=== PATIENT | male | born 1970 | race Caucasian/White ===

== ENCOUNTER 2016-11-10 16:02 | Emergency (ER) | payer BC, MEDICAID ==
[2016-11-10 16:13] VITALS: BP 116/77
[2016-11-10] MEDS ORDERED: hydrOXYzine PAMOATE 25 MG CAPSULE PO STA (17:17)
[2016-11-10] MEDS ORDERED: CLINDAMYCIN 150 MG CAPSULE PO STA (17:17)
[2016-11-10] MEDS ORDERED: predniSONE 20 MG TABLET PO STA (17:17)
--- NOTE | 2016-11-10 17:20 | ED Physician Documentation ---
History of Present Illness - Stated complaint Stated Complaint: RASH/ SOA - Chief complaint Chief Complaint: Allergic Rx - History obtained from History obtained from: Patient - History of Present Illness Timing: Other (He had a root canal 4 days ago. He was placed on Dilaudid, Vicodin, and Keflex. He only took 1 dose of the Dilaudid, centimeter and feels sick. About the day after starting his medications he developed a diffuse itchy rash worse in the groin and on the back which has not responded to Benadryl. He does have mild shortness of breath but no soft throat swelling he does have a little jaw swelling over the site of the root canal. He really does not need pain medication anymore.) Review of Systems Constitutional: denies: Fever, Chills Cardiac: reports: Reviewed and negative GI: denies: Vomiting, Constipation : reports: Reviewed and negative PD PAST MEDICAL HISTORY - Past Medical History Cardiovascular: None Respiratory: None Endocrine/Autoimmune: None GI: None : None HEENT: None Psych: Claustrophobia Musculoskeletal: None Derm: None - Past Surgical History Past Surgical History: No - Present Medications Home Medications: Ambulatory Orders Medication Instructions Recorded Confirmed Clindamycin [Cleocin] 300 mg PO Q6H 7 Days 11/10/16 Hydroxyzine Pamoate 25 mg PO Q4H PRN #15 capsule 11/10/16 predniSONE [Deltasone] 60 mg PO DAILY 5 Days 11/10/16 - Allergies Allergies/Adverse Reactions: Allergies Allergy/AdvReac Type Severity Reaction Status Date / Time No Known Drug Allergies Allergy Verified 11/10/16 16:13 - Social History Does the pt smoke?: Yes Smoking Status: Current every day smoker Does the pt drink ETOH?: Yes Does the pt have substance abuse?: No PD ED PE NORMAL - Vitals Vital signs reviewed: Yes - General General: Alert and oriented X 3, No acute distress - HEENT HEENT: Pharynx benign - Neck Neck: Supple, no meningeal sign, No bony TTP - Cardiac Cardiac: RRR, No murmur - Respiratory Respiratory: No respiratory distress, Clear bilaterally - Abdomen Abdomen: Non tender - Derm Derm: Other (He does have some hives especially on the inner thighs and the flanks.) - Neuro Neuro: Alert and oriented X 3 - Psych Psych: Normal mood, Normal affect Results - Vitals Vitals: Vital Signs - 24 hr 11/10/16 16:07 Temperature 36.9 C Heart Rate 95 Respiratory 18 Rate Blood Pressure 116/77 O2 Saturation 100 Oxygen O2 Source Room air Departure - Departure Disposition: 01 Home, Self Care Clinical Impression: Allergic urticaria Condition: Good Record reviewed to determine appropriate education?: Yes Instructions: ED Drug React Allergic Prescriptions: Clindamycin [Cleocin] 300 mg PO Q6H 7 Days predniSONE [Deltasone] 60 mg PO DAILY 5 Days Hydroxyzine Pamoate 25 mg PO Q4H PRN #15 capsule PRN Reason: Itching Comments: Stop the medications that the dentist gave you, presume the allergic reaction is from 1 of those. Return if worse, otherwise follow-up with your physician within the week.
[2016-11-10] MEDS ORDERED: predniSONE 20 MG TABLET ONE (17:43)
[2016-11-10] MEDS ORDERED: hydrOXYzine PAMOATE 25 MG CAPSULE ONE (17:43)
[2016-11-10] MEDS ORDERED: CLINDAMYCIN 150 MG CAPSULE PO ONE (17:43)
== END 2016-11-10 17:55 | disposition home or self-care (01) ==
LOC: ED 16:02
DX: L50.0 Allergic urticaria (principal); F17.200 Nicotine dependence, unspecified, uncomplicated
CPT/HCPCS: 99282; 99283; A9270; J7512

== ENCOUNTER 2017-01-26 08:00 | Outpatient (CLI) | payer MEDICAID | END 2017-01-26 08:01 | disposition home or self-care (01) | LOC: LAB.R 08:00 | PROVIDERS: ATTEND Nurse Practitioner Gerontology | DX: S31.104A Unspecified open wound of abdominal wall, left lower quadrant without penetration into peritoneal cavity, initial encounter (principal); N45.4 Abscess of epididymis or testis | CPT/HCPCS: 87070; 87205 ==

== ENCOUNTER 2017-04-10 09:31 | Day surgery (SDC) | payer MEDICAID ==
[2017-04-10] MEDS ORDERED: LACTATED RINGERS 1,000 ML IV ONE (09:37)
[2017-04-10] MEDS ORDERED: levoFLOXacin 500 MG/100 ML 500 MG/100 ML BAG IV ONE (09:38)
[2017-04-10] MEDS ORDERED: LIDOCAINE 2%-EPI 1:100000 20 ML MDV SUBQ ONE ×2 (10:46)
[2017-04-10] MEDS ORDERED: LIDOCAINE-MPF 2% 5 ML VIAL IM ONE (11:10)
[2017-04-10] MEDS ORDERED: ONDANSETRON 4 MG/2 ML VIAL IVP ONE (11:10)
[2017-04-10] MEDS ORDERED: MIDAZOLAM 2 MG/2 ML VIAL IVP ONE (11:10)
[2017-04-10] MEDS ORDERED: PROPOFOL 200 MG/20 ML VIAL IVP ONE (11:10)
[2017-04-10] MEDS ORDERED: fentaNYL 100 MCG/2 ML VIAL IVP ONE (11:10)
[2017-04-10] MEDS ORDERED: KETOROLAC 30 MG/ML VIAL ONE (11:28)
--- NOTE | 2017-04-10 11:34 | OPERATIVE REPORT ---
DATE OF SERVICE: 04/10/2017 Physician: Wilson Kc MD DATE OF SURGERY: 04/10/2017 PREOPERATIVE DIAGNOSIS: Right groin cyst. POSTOPERATIVE DIAGNOSIS: Right groin cyst. NAME OF PROCEDURE 1. Excision of right groin cyst, 3.5 cm. 2. Layered closure of left groin incision, 4.5 cm. SURGEON: Wilson Kc MD ANESTHESIA: General. INDICATION FOR SURGERY: The patient is a 47-year-old male who presented to the emergency room with a swollen, painful lump in the left groin. He presented to the office, undergoing incision and drainage of this area with it being an infected epidermal cyst. This was over 6 weeks ago. He has been doing dressing changes with the wound closing up initially, but now staying open due to the lining of the cyst wall. He would like to have it excised. FINDINGS AT PROCEDURE: The cyst measured approximately 3.5 cm in size. There was layered closure 4.5 cm. DESCRIPTION OF PROCEDURE: After informed consent was obtained, the patient was taken to the procedure room and placed in supine position. General anesthesia was administered. The left groin was then prepped and draped in the usual sterile fashion. The skin overlying the area to be excised was then injected with local anesthesia. An elliptical incision was then made around the cyst to include the part that was still open. There was no purulent drainage. The incision was then deepened down through subcutaneous tissue using cautery. The lesion was then excised from the subcutaneous tissue completely. The wound was irrigated. Hemostasis was obtained using electrocautery. Subcutaneous tissue was closed using interrupted 3-0 Vicryl suture. Skin incision was closed using interrupted 4-0 nylon vertical mattress sutures. Dry dressing was then applied. The patient was then awakened, extubated, and taken from the operating room in stable condition. ESTIMATED BLOOD LOSS: Less than 5 mL COMPLICATIONS: None. CONDITION OF THE PATIENT AT THE END OF THE PROCEDURE: Stable. SPECIMENS: Left groin cyst. DRAINS OR PACKS: None. CLASSIFICATION OF WOUND: Clean/contaminated. TD: 04/10/2017 12:33
[2017-04-10 12:16] VITALS: BP 141/80
== END 2017-04-10 09:32 | disposition home or self-care (01) ==
LOC: SDS 09:31
PROVIDERS: ATTEND Surgery
PROC: 0JB80ZZ Excision of Abdomen Subcutaneous Tissue and Fascia, Open Approach (ICD-10-PCS; principal; 2017-04-10 10:45)
DX: L72.3 Sebaceous cyst (principal); L72.0 Epidermal cyst
CPT/HCPCS: 11404; 12032; J7120

== ENCOUNTER 2018-04-22 08:00 | Outpatient (CLI) | payer MEDICAID, OTHER | END 2018-04-22 23:59 | disposition home or self-care (01) | LOC: LAB.N 08:00 | PROVIDERS: ATTEND Physician Assistant Medical | DX: R50.9 Fever, unspecified (principal) | CPT/HCPCS: 87275; 87276 ==

== ENCOUNTER 2018-12-29 13:41 | Emergency (ER) | payer MEDICAID, OTHER ==
--- NOTE | 2018-12-29 16:06 | ED Physician Documentation ---
PD HPI WOUND RECHECK - Stated complaint Stated Complaint: POST OP COMPLICATION - Chief complaint Chief Complaint: Wound - Histroy obtained from History obtained from: Patient - History of Present Illness Location: Other (About 18 months ago he had a sebaceous cyst removed from the left groin. Review of the pathology shows that potentially some of it was missed. Over the last few weeks he is noted a recurrence with a little area that is draining.) Review of Systems Constitutional: reports: Reviewed and negative Throat: reports: Reviewed and negative Cardiac: reports: Reviewed and negative PD PAST MEDICAL HISTORY - Past Medical History Cardiovascular: None Respiratory: None Endocrine/Autoimmune: None GI: GERD : None HEENT: Chronic vision loss Psych: Claustrophobia Musculoskeletal: Gout Derm: None - Past Surgical History Past Surgical History: No Ortho: Arthroscopic surgery - Present Medications Home Medications: Ambulatory Orders Medication Instructions Recorded Confirmed Ibuprofen [Motrin] 400 mg PO Q6H PRN #30 tablet 01/21/17 04/10/17 Cephalexin [Keflex] 500 mg PO Q6H #28 capsule 12/29/18 - Allergies Allergies/Adverse Reactions: Allergies Allergy/AdvReac Type Severity Reaction Status Date / Time No Known Drug Allergies Allergy Verified 12/29/18 13:45 - Social History Does the pt smoke?: Yes Smoking Status: Current every day smoker Does the pt drink ETOH?: Yes Does the pt have substance abuse?: No PD ED PE NORMAL - Vitals Vital signs reviewed: Yes - General General: Alert and oriented X 3, No acute distress - Extremities Extremities: Other (In the left groin there is some scar tissue, there is a little open area measuring about 3 mm in diameter. It does not look like it goes deep, more of a scrape. I do not feel any cyst per se.) - Neuro Neuro: Alert and oriented X 3, Normal speech Results - Vitals Vitals: Vital Signs - 24 hr 12/29/18 13:45 Temperature 36.9 C Heart Rate 87 Respiratory 17 Rate Blood Pressure 141/81 H O2 Saturation 100 Oxygen O2 Source Room air Departure - Departure Disposition: 01 Home, Self Care Clinical Impression: Skin ulcer of groin Qualifiers: Non-pressure ulcer stage: limited to breakdown of skin Qualified Code(s): L98.491 - Non-pressure chronic ulcer of skin of other sites limited to breakdown of skin Condition: Good Record reviewed to determine appropriate education?: Yes Instructions: ED [facility] Infec Abx Tx Only Follow-Up: Tyrese Ng MD [Provider Admit Priv/Credential] - Prescriptions: Cephalexin [Keflex] 500 mg PO Q6H #28 capsule Comments: Return for new or worsening symptoms. Otherwise follow-up with the surgeon for further evaluation and definitive treatment.
[2018-12-29 16:19] VITALS: BP 133/85
== END 2018-12-29 16:19 | disposition home or self-care (01) ==
LOC: ED 13:41
DX: L98.491 Non-pressure chronic ulcer of skin of other sites limited to breakdown of skin (principal); F17.200 Nicotine dependence, unspecified, uncomplicated
CPT/HCPCS: 99282; 99283

== ENCOUNTER 2019-07-12 13:34 | Outpatient (CLI) | payer OTHER ==
--- NOTE | 2019-07-12 15:13 | XRAY Report ---
Reason: LEFT KNEE PAIN/FOREGIN BODY Procedure Date: 07/12/2019 Accession Number: [id number] / [id number] Procedure: XR - Knee 3 View BILAT CPT Code: Final Report FULL RESULT: EXAMS: 1. Right Knee Radiography 2. Left Knee Radiography EXAM DATE:07/12/2019 02:20 PM. CLINICAL HISTORY:Left knee pain COMPARISON: KNEE 4 VIEW LT 01/31/2014 6:44 PM. TECHNIQUE: 3 views each. FINDINGS: Right Knee: Bones: Normal. No fractures or bone lesions. Joints: Normal. No effusion. No subluxations. Soft Tissues: There is no prepatellar soft tissue swelling. No radiopaque foreign body. Left Knee: Bones: Normal. No fractures or bone lesions. Joints: Normal. No effusion. No subluxations. Soft Tissues: Normal. No soft tissue swelling. IMPRESSION: No evidence of fracture, dislocation, or radiopaque foreign body. RADIA
--- NOTE | 2019-07-12 15:15 | XRAY Report ---
Reason: RIGHT CLAVICLE FRACTURE,LEFT KNEE PAIN Procedure Date: 07/12/2019 Accession Number: [id number] / [id number] Procedure: XR - Clavicle RT CPT Code: Final Report FULL RESULT: EXAM: RIGHT CLAVICLE RADIOGRAPHY EXAM DATE: 07/12/2019 02:20 PM. CLINICAL HISTORY: RIGHT CLAVICLE FRACTURE, LEFT KNEE PAIN. COMPARISON: None. TECHNIQUE: 2 views. FINDINGS: Bones: There is displaced fracture through the mid left clavicle. There is 1.8 cm craniocaudal diastases through the fracture. There is marginal callus formation. Joints: No evidence of dislocation. Soft Tissues: No unexpected soft tissue findings. IMPRESSION: There is healing, displaced fracture through the mid right clavicle. No evidence of dislocation. RADIA
== END 2019-07-12 13:35 | disposition home or self-care (01) ==
LOC: DI 13:34
PROVIDERS: ATTEND Orthopaedic Surgery Adult Reconstructive Orthopaedic Surgery
DX: M25.562 Pain in left knee (principal); S42.001D Fracture of unspecified part of right clavicle, subsequent encounter for fracture with routine healing

== ENCOUNTER 2021-03-06 19:37 | Outpatient (CLI) | payer MEDICAID | END 2021-03-06 19:38 | disposition critical access hospital (66) | LOC: EMS 19:37 | DX: R07.89 Other chest pain (principal) | CPT/HCPCS: A0425; A0427; A0999 ==

== ENCOUNTER 2021-03-06 19:47 | Emergency (ER) | payer MEDICAID, OTHER ==
[2021-03-06 20:18] LABS: BASOPHILS # (AUTO) 0.1 10^3/uL (0.0-0.1); BASOPHILS % (AUTO) 0.7 %; EOSINOPHILS # (AUTO) 0.1 10^3/uL (0.0-0.7); EOSINOPHILS % (AUTO) 1.4 %; HCT - HEMATOCRIT 46.4 % (42.0-52.0); HGB - HEMOGLOBIN 16.3 g/dL (14.0-18.0); LYMPHOCYTES # (AUTO) 2.7 10^3/uL (1.5-3.5); LYMPHOCYTES % (AUTO) 30.8 %; MEAN CORPUSCULAR HEMOGLOBIN 35.4 pg (27.0-31.0); MEAN CORPUSCULAR HGB CONC 35.1 g/dL (32.0-36.0); MEAN CORPUSCULAR VOLUME 100.9 fL (80.0-94.0); MEAN PLATELET VOLUME 11.8 fL (7.4-11.4); MONOCYTES # (AUTO) 0.5 10^3/uL (0.0-1.0); MONOCYTES % (AUTO) 5.8 %; NEUTROPHILS # (AUTO) 5.3 10^3/uL (1.5-6.6); NEUTROPHILS % (AUTO) 60.7 %; PLT - PLATELET COUNT 153 10^3/uL (130-450); RED CELL DISTRIBUTION WIDTH 11.6 % (12.0-15.0); WHITE BLOOD COUNT 8.7 x10^3/uL (4.8-10.8)
[2021-03-06 20:19] LABS: ALBUMIN 4.2 g/dL (3.2-5.5); BILIRUBIN,TOTAL 0.5 mg/dL (0.2-1.0); CALCIUM 9.9 mg/dL (8.5-10.3); CREATININE 0.8 mg/dL (0.6-1.2); POTASSIUM 3.8 mmol/L (3.5-5.0); TOTAL PROTEIN 7.6 g/dL (6.7-8.2)
[2021-03-06 20:20] LABS: ALBUMIN/GLOBULIN RATIO 1.2 (1.0-2.2)
--- NOTE | 2021-03-06 20:24 | XRAY Report ---
PROCEDURE: Chest 1 View X-Ray INDICATIONS: Chest pain TECHNIQUE: One view of the chest was acquired. COMPARISON: None FINDINGS: Surgical changes and devices: Right clavicular orthopedic fixation hardware. Lungs and pleura: No pleural effusions or pneumothorax. Lungs are clear. Mediastinum: Mediastinal contours appear normal. Heart size is normal. Bones and chest wall: Multiple old right-sided rib fractures. No suspicious bony lesions. Overlying soft tissues appear unremarkable. IMPRESSION: No evidence acute pulmonary process. Reviewed by: Andres Ernst MD on 03/06/2021 8:23 PM PST Approved by: Andres Ernst MD on 03/06/2021 8:23 PM PST Station ID: [id number]
--- NOTE | 2021-03-06 20:29 | ED Physician Documentation ---
PD HPI CHEST PAIN - Stated complaint Stated Complaint: CHEST PX - Chief complaint Chief Complaint: Cardiac - History obtained from History obtained from: Patient, EMS - History of Present Illness Timing - onset: Today (Onset this morning of substernal chest pain into the back with undulating degree of symptoms. Worse with activity. It became more consistent this evening in the last couple of hours prior to arrival. No prior similar episodes.) Timing - onset during: Rest. No: Exertion Timing - duration: Hours (10-12) Timing - details: Abrupt onset, Still present, Waxing and waning Quality: Aching, Sharp, Pain Location: Substernal, Left chest Radiation: Back Improved by: No: Rest Worsened by: Exertion, Inspiration. No: Eating, Movement, Palpation Associated symptoms: Shortness of air, Feeling faint / dizzy. No: Vomiting, General Weakness, Palpitations, Cough Similar symptoms before: Has not had sx before Recently seen: Not recently seen Review of Systems Constitutional: denies: Fever, Chills, Myalgias Nose: denies: Rhinorrhea / runny nose, Congestion Throat: denies: Sore throat Cardiac: reports: Chest pain / pressure. denies: Palpitations, Pedal edema, Calf pain Respiratory: reports: Dyspnea. denies: Cough, Wheezing GI: denies: Abdominal Pain, Nausea, Vomiting, Diarrhea Skin: denies: Rash, Lesions Musculoskeletal: denies: Neck pain, Back pain Neurologic: reports: Generalized weakness. denies: Focal weakness, Numbness, Near syncope PD PAST MEDICAL HISTORY - Past Medical History Cardiovascular: None Respiratory: None Neuro: None Endocrine/Autoimmune: None GI: GERD : None HEENT: Chronic vision loss Psych: Claustrophobia Musculoskeletal: Gout Derm: None - Past Surgical History Past Surgical History: No Ortho: Arthroscopic surgery - Present Medications Home Medications: Ambulatory Orders Medication Instructions Recorded Confirmed No Known Home Medications 03/06/21 03/06/21 - Allergies Allergies/Adverse Reactions: Allergies Allergy/AdvReac Type Severity Reaction Status Date / Time No Known Drug Allergies Allergy Verified 03/06/21 20:00 - Living Situation Living Situation: reports: With spouse/s.o. Living Arrangement: reports: At home - Social History Does the pt smoke?: Yes Smoking Status: Current every day smoker Does the pt drink ETOH?: Yes Does the pt have substance abuse?: No - Family History Family history: reports: CAD PD ED PE NORMAL - Vitals Vital signs reviewed: Yes - General General: Alert and oriented X 3, Well developed/nourished, Other (appears in discomfot due to chest pain) - HEENT HEENT: Moist mucous membranes, Pharynx benign - Neck Neck: Supple, no meningeal sign, No adenopathy - Cardiac Cardiac: RRR, No murmur - Respiratory Respiratory: Clear bilaterally, Other (no chestwall tenderness) - Abdomen Abdomen: Soft, Non tender, Non distended - Back Back: No CVA TTP - Derm Derm: Normal color, Warm and dry, No rash - Extremities Extremities: No tenderness to palpate, Normal ROM s pain, No edema, No calf tenderness / cord - Neuro Neuro: Alert and oriented X 3, No motor deficit, Normal speech Eye Opening: Spontaneous Motor: Obeys Commands Verbal: Oriented GCS Score: 15 - Psych Psych: Normal mood Results - Vitals Vitals: Vital Signs - 24 hr 03/06/21 03/06/21 03/06/21 19:52 20:30 21:00 Temperature 36.3 C L Heart Rate 74 73 81 Respiratory 17 9 L 17 Rate Blood Pressure 142/90 H 138/82 H 101/68 O2 Saturation 94 97 94 03/06/21 03/06/21 03/06/21 21:20 21:56 22:10 Temperature 36.4 C L Heart Rate 70 74 71 Respiratory 16 12 13 Rate Blood Pressure 147/107 H 143/100 H 160/101 H O2 Saturation 95 97 95 03/06/21 03/06/21 03/06/21 22:15 22:29 22:56 Temperature 36.4 C L 36.3 C L Heart Rate 76 72 73 Respiratory 16 17 18 Rate Blood Pressure 160/101 H 148/97 H 153/106 H O2 Saturation 95 95 100 Oxygen O2 Source Room air - EKG (time done) 19:51 Rate: Rate (enter#) (76) Rhythm: NSR [place]: Normal Intervals: Normal CT QRS: Normal Ischemia: ST elevation c/w ischemia (minimal elevations in lead aVL, I, V6 without reciprocal changes. ) 22:04 Rate: Rate (enter#) (71) Rhythm: NSR [place]: Normal Intervals: Normal CT QRS: Normal Ischemia: ST elevation c/w ischemia (same lateral leads ST elevation, a bit more distinct, and now ST depression III. ) - Labs Labs: Laboratory Tests 03/06/21 03/06/21 03/06/21 19:57 19:57 19:57 WBC 8.7 RBC 4.60 L Hgb 16.3 Hct 46.4 MCV 100.9 H MCH 35.4 H MCHC 35.1 RDW 11.6 L Plt Count 153 MPV 11.8 H Neut # (Auto) 5.3 Lymph # (Auto) 2.7 Cooper # (Auto) 0.5 Eos # (Auto) 0.1 Baso # (Auto) 0.1 Absolute Nucleated RBC 0.00 Nucleated RBC % 0.0 Sodium 131 L Potassium 3.8 Chloride 99 L Carbon Dioxide 22 Anion Gap 10.0 BUN 13 Creatinine 0.8 Estimated GFR (MDRD) 103 Glucose 276 H Calcium 9.9 Magnesium Total Bilirubin 0.5 AST 19 ALT 32 Alkaline Phosphatase 79 Total Creatine Kinase Troponin I High Sens 82.3 H* C-Reactive Protein B-Natriuretic Peptide Total Protein 7.6 Albumin 4.2 Globulin 3.4 Albumin/Globulin Ratio 1.2 Lipase 27 Nasal Adenovirus (PCR) Nasal B. parapertussis DNA (PCR) Nasal Coronavir 229E PCR Nasal Coronavir HKU1 PCR Nasal Coronavir NL63 PCR Nasal Coronavir OC43 PCR Nasal Enterovir/Rhinovir PCR Nasal Influenza B PCR Nasal Influenza A PCR Nasal Parainfluen 1 PCR Nasal Parainfluen 2 PCR Nasal Parainfluen 3 PCR Nasal Parainfluen 4 PCR Nasal RSV (PCR) Nasal B.pertussis DNA PCR Nasal C.pneumoniae (PCR) Rubio Human Metapneumo PCR Nasal M.pneumoniae (PCR) Nasal SARS-CoV-2 (PCR) 03/06/21 03/06/21 03/06/21 19:57 19:57 20:58 WBC RBC Hgb Hct MCV MCH MCHC RDW Plt Count MPV Neut # (Auto) Lymph # (Auto) Cooper # (Auto) Eos # (Auto) Baso # (Auto) Absolute Nucleated RBC Nucleated RBC % Sodium Potassium Chloride Carbon Dioxide Anion Gap BUN Creatinine Estimated GFR (MDRD) Glucose Calcium Magnesium 2.2 Total Bilirubin AST ALT Alkaline Phosphatase Total Creatine Kinase 69 Troponin I High Sens C-Reactive Protein 1.3 H B-Natriuretic Peptide 23 Total Protein Albumin Globulin Albumin/Globulin Ratio Lipase Nasal Adenovirus (PCR) NOT DETECTED Nasal B. parapertussis DNA (PCR) NOT DETECTED Nasal Coronavir 229E PCR NOT DETECTED Nasal Coronavir HKU1 PCR NOT DETECTED Nasal Coronavir NL63 PCR NOT DETECTED Nasal Coronavir OC43 PCR NOT DETECTED Nasal Enterovir/Rhinovir PCR NOT DETECTED Nasal Influenza B PCR NOT DETECTED Nasal Influenza A PCR NOT DETECTED Nasal Parainfluen 1 PCR NOT DETECTED Nasal Parainfluen 2 PCR NOT DETECTED Nasal Parainfluen 3 PCR NOT DETECTED Nasal Parainfluen 4 PCR NOT DETECTED Nasal RSV (PCR) NOT DETECTED Nasal B.pertussis DNA PCR NOT DETECTED Nasal C.pneumoniae (PCR) NOT DETECTED Rubio Human Metapneumo PCR NOT DETECTED Nasal M.pneumoniae (PCR) NOT DETECTED Nasal SARS-CoV-2 (PCR) NOT DETECTED 03/06/21 21:55 WBC RBC Hgb Hct MCV MCH MCHC RDW Plt Count MPV Neut # (Auto) Lymph # (Auto) Cooper # (Auto) Eos # (Auto) Baso # (Auto) Absolute Nucleated RBC Nucleated RBC % Sodium Potassium Chloride Carbon Dioxide Anion Gap BUN Creatinine Estimated GFR (MDRD) Glucose Calcium Magnesium Total Bilirubin AST ALT Alkaline Phosphatase Total Creatine Kinase Troponin I High Sens 149.4 H* C-Reactive Protein B-Natriuretic Peptide Total Protein Albumin Globulin Albumin/Globulin Ratio Lipase Nasal Adenovirus (PCR) Nasal B. parapertussis DNA (PCR) Nasal Coronavir 229E PCR Nasal Coronavir HKU1 PCR Nasal Coronavir NL63 PCR Nasal Coronavir OC43 PCR Nasal Enterovir/Rhinovir PCR Nasal Influenza B PCR Nasal Influenza A PCR Nasal Parainfluen 1 PCR Nasal Parainfluen 2 PCR Nasal Parainfluen 3 PCR Nasal Parainfluen 4 PCR Nasal RSV (PCR) Nasal B.pertussis DNA PCR Nasal C.pneumoniae (PCR) Rubio Human Metapneumo PCR Nasal M.pneumoniae (PCR) Nasal SARS-CoV-2 (PCR) - Rads (name of study) chest xray Radiology: Prelim report reviewed (no evidence acute cardiopulmonary process. ), See rad report chest CT-A Radiology: Prelim report reviewed (No PEs, normal aorta. Normal lung duncan. ), See rad report PD MEDICAL DECISION MAKING - ED course Complexity details: re-evaluated patient (Pain was reasonably improved with nitro sublingual and morphine. However has become worse in the last 20 or 30 minutes. Starting on a heparin drip and giving him Dilaudid as well. Repeat EKG looks more clearly ST elevation with some inferior depression. At this point is appearing STEMI/ACS.), considered differential (Chest pain consistent with cardiac cause though there is a pleuritic component. His EKG shows nondiagnostic ST elevation in the lateral leads without reciprocal changes. We will check for PE and aortic problems with a CT chest.), d/w patient ED course: Extenuating circumstances for delay in diagnosis and transfer compared to usual STEMI. His initial presentation and EKG were suggestive of some nondiagnostic S T elevations laterally but no reciprocal changes. His symptoms were concerning for possibilities of aortic process or PEs and these needed to be excluded given the sharp character of the pain and pleuritic component. However with these tests being normal and then having a increase in his pain subsequently in the ER and the EKG now showing some reciprocal ischemic changes, I also felt the ST elevations were a bit more prominent. Concern for evolving STEMI versus unstable angina with ischemic EKG changes. In either event urgent/emergent heart catheterization would be appropriate. I talked with the emergency visit attending at [facility] and reviewed the EKG with him after it was faxed to him that he could visualize. Concurrence of opinion was to treat as a STEMI and he accepted transfer. - Critical Care Time(min): 40 Time Includes: Direct patient care, Reassess patient, Document care, Coordinate care Data interpretation: Labs, Pulse ox, CXR Procedures excluded from critical care time: EKG Departure - Departure Disposition: 02 Transfer Acute Care Hosp Clinical Impression: STEMI (ST elevation myocardial infarction) Qualifiers: Involved coronary artery: unspecified coronary artery Qualified Code(s): I21.3 - ST elevation (STEMI) myocardial infarction of unspecified site Chest pain Qualifiers: Chest pain type: unspecified Qualified Code(s): R07.9 - Chest pain, unspecified Condition: Stable Discharge Date/Time: 03/06/21 23:10
[2021-03-06] MEDS ORDERED: KETOROLAC 30 MG/ML VIAL IVP STA (20:42)
[2021-03-06] MEDS ORDERED: MORPHINE 10 MG/ML VIAL IVP STA (20:42)
[2021-03-06] MEDS ORDERED: NITROGLYCERIN SL 0.4 MG TABLET SL STA (20:43)
[2021-03-06] MEDS ORDERED: IOPAMIDOL-300 100 ML VIAL ONE (20:54)
[2021-03-06 21:05] LABS: CRP - C-REACTIVE PROTEIN 1.3 mg/dL (0-1.0); MAGNESIUM 2.2 mg/dL (1.7-2.8)
[2021-03-06] MEDS ORDERED: IOPAMIDOL-300 100 ML VIAL IVP ONE (21:23)
--- NOTE | 2021-03-06 21:37 | CT Report ---
PROCEDURE: ANGIO CHEST W/WO INDICATIONS: pleuritic chest pain since AM CONTRAST: IV CONTRAST: Isovue 300 ml: 100 PO CONTRAST: *NO PO CONTRAST TECHNIQUE: After the administration of intravenous contrast, 2 mm axial images were acquired from the pulmonary apices to the posterior costophrenic angles during the arterial phase. In addition, 1 mm lung kernel and 5 mm soft tissue kernel reconstructions were performed. 3-dimensional coronal oblique maximum int ensity projection (MIP) reformats, 8 mm axial MIP, and 5 mm coronal and sagittal MPR reformats were t hen performed through the thorax. For radiation dose reduction, the following was used: automated exp osure control, adjustment of mA and/or kV according to patient size. COMPARISON: None FINDINGS: Image quality: Excellent. Pulmonary arteries: Pulmonary arteries are normal in size, and demonstrate no intraluminal filling d efects to suggest central pulmonary embolism. Lungs and pleura: Mild emphysematous change. Lungs are clear. No pleural effusions or pneumothorax. Central and peripheral airways are patent. Mediastinum: Heart size is normal, without pericardial effusion. No mediastinal or hilar adenopathy . Thoracic aorta is normal in caliber and enhancement. Esophagus is normal in caliber, without hiat al hernia. Bones and chest wall: Numerous old right rib fractures. No suspicious bony lesions. Ribs and thorac ic spine appear intact throughout. No axillary or supraclavicular adenopathy. The thyroid is normal in size and there are no incidental findings. Abdomen: Visualized upper abdominal solid organs appear normal in the early arterial phase of enhanc ement. IMPRESSION: 1. No evidence acute pulmonary emboli. 2. No evidence acute pulmonary process. 3. Mild emphysematous change. CLINICAL RECOMMENDATION STATEMENTS: In patients <35 years with an ITN detected on CT, MRI, or extrathyroidal ultrasound, the Committee re commends further evaluation with dedicated thyroid ultrasound if the nodule is "e1 cm and has no susp icious imaging features, and if the patient has normal life expectancy. In patients "e35 years with an ITN detected on CT, MRI, or extrathyroidal ultrasound, the Committee r ecommends further evaluation with dedicated thyroid ultrasound if the nodule is "e1.5 cm and has no s uspicious imaging features, and if the patient has normal life expectancy. (ACR, 2014) Reviewed by: Andres Ernst MD on 03/06/2021 9:35 PM PST Approved by: Andres Ernst MD on 03/06/2021 9:35 PM PST Station ID: [id number]
[2021-03-06] MEDS ORDERED: HYDROmorphone 1 MG/ML CARPUJECT IVP STA (21:56)
[2021-03-06] MEDS ORDERED: HEPARIN 25000UNITS/500ML (D5W) 25,000 UNIT/500 ML BAG IV SCH (22:00)
[2021-03-06] MEDS ORDERED: CLOPIDOGREL 300 MG TABLET PO STA (22:37)
[2021-03-06] MEDS ORDERED: PRAVASTATIN 10 MG TABLET PO STA (22:38)
[2021-03-06] MEDS ORDERED: ATORVASTATIN 40 MG TABLET PO STA (22:42)
[2021-03-06] MEDS ORDERED: NITROGLYCERIN 50 MG/250 ML 50 MG/250 ML BOTTLE IV SCH (23:00)
[2021-03-06 23:10] VITALS: BP 153/106
[2021-03-06 23:20] LABS: B. PARAPERTUSSIS- RESP PCR PAN NOT DETECTED; B. PERTUSSIS- RESP PCR PANEL NOT DETECTED; C. PNEUMONIAE- RESP PCR PANEL NOT DETECTED; CORONAVIRUS 229E-RESP PCR NOT DETECTED; CORONAVIRUS HKU1-RESP PCR NOT DETECTED; CORONAVIRUS NL63-RESP PCR NOT DETECTED; CORONAVIRUS OC43-RESP PCR NOT DETECTED; HUMAN METAPNEUMOVIRUS NOT DETECTED; INFLUENZA A- RESP PCR PANEL NOT DETECTED; INFLUENZA B - RESP PCR PANEL NOT DETECTED; M. PNEUMONIAE- RESP PCR PANEL NOT DETECTED; PARAINFLUENZA VIRUS 1 NOT DETECTED; PARAINFLUENZA VIRUS 2 NOT DETECTED; PARAINFLUENZA VIRUS 3 NOT DETECTED; PARAINFLUENZA VIRUS 4 NOT DETECTED; RHINOVIRUS/ENTEROVIRUS NOT DETECTED; RSV- RESP PCR PANEL NOT DETECTED; SARS-CoV-2 -RESP PCR PANEL NOT DETECTED
== END 2021-03-06 23:10 | disposition short-term general hospital (02) ==
LOC: EDUNIT# → ED 19:47
DX: I21.3 ST elevation (STEMI) myocardial infarction of unspecified site (principal); F17.200 Nicotine dependence, unspecified, uncomplicated
CPT/HCPCS: 0202U; 36415; 71045; 71275; 80053; 82550; 83690; 83735; 83880; 84484; 85025; 86140; 93005; 96365; 96375; 96376; 99291; A9270; J1170; Q9967

== ENCOUNTER 2021-03-06 23:15 | Outpatient (CLI) | payer MEDICAID | END 2021-03-06 23:16 | disposition short-term general hospital (02) | LOC: EMS 23:15 | PROVIDERS: ATTEND Emergency Medicine | DX: I21.3 ST elevation (STEMI) myocardial infarction of unspecified site (principal) | CPT/HCPCS: A0425; A0428 ==

== ENCOUNTER 2022-03-13 12:00 | Emergency (ER) | payer MEDICAID ==
--- NOTE | 2022-03-13 12:27 | ED Physician Documentation ---
PD HPI CHEST PAIN - Stated complaint Stated Complaint: CHEST PX, NAUSEA - Chief complaint Chief Complaint: Cardiac - History obtained from History obtained from: Patient - Additional information Additional information: 51-year-old gentleman with history of coronary disease, stented x1 for HI on March 06, 2021. His description at that time says that he did have some non- interveneable coronary disease. For the last 3 days he has had constant stabbing central chest pain that is nonradiating and not worse with exertion. There is no shortness of breath with it. Review of Systems Constitutional: reports: Fatigue. denies: Fever, Chills Cardiac: reports: Chest pain / pressure. denies: Palpitations, Pedal edema, Calf pain Respiratory: denies: Dyspnea, Cough PD PAST MEDICAL HISTORY - Past Medical History Cardiovascular: None Respiratory: None Neuro: None Endocrine/Autoimmune: None GI: GERD : None HEENT: Chronic vision loss Psych: Claustrophobia Musculoskeletal: Gout Derm: None - Past Surgical History Past Surgical History: No Ortho: Arthroscopic surgery - Present Medications Home Medications: Ambulatory Orders Medication Instructions Recorded Confirmed No Known Home Medications 03/06/21 03/06/21 - Allergies Allergies/Adverse Reactions: Allergies Allergy/AdvReac Type Severity Reaction Status Date / Time No Known Drug Allergies Allergy Verified 03/06/21 20:00 - Social History Does the pt smoke?: No Smoking Status: Former smoker (Quit smoking March 30, 2021) Does the pt drink ETOH?: Yes Does the pt have substance abuse?: No - POLST Patient has POLST: No PD ED PE NORMAL - Vitals Vital signs reviewed: Yes - General General: Alert and oriented X 3, No acute distress - HEENT HEENT: PERRL, EOMI - Neck Neck: Supple, no meningeal sign, No bony TTP - Cardiac Cardiac: RRR, No murmur - Respiratory Respiratory: No respiratory distress, Clear bilaterally - Abdomen Abdomen: Normal bowel sounds, Soft, Non tender - Back Back: No CVA TTP, No spinal TTP - Derm Derm: Normal color, Warm and dry - Extremities Extremities: No edema, No calf tenderness / cord - Neuro Neuro: Alert and oriented X 3, Normal speech - Psych Psych: Normal mood, Normal affect Results - Vitals Vitals: Vital Signs - 24 hr 03/13/22 12:16 Temperature 36.8 C Heart Rate 73 Respiratory 16 Rate Blood Pressure 128/80 O2 Saturation 99 Oxygen O2 Source Room air - EKG (time done) 1225 Rate: Rate (enter#) (72) Rhythm: NSR [place]: Normal Intervals: Normal ID QRS: Normal Ischemia: Non specific changes Compare to prior EKG: Changed from prior EKG (Compared with 03/06/2021, when he was having an HI, he has resolved lateral ST elevation and inferior ST depression is now submillimeter ST elevation.) - Labs Labs: Laboratory Tests 03/13/22 03/13/22 03/13/22 12:33 12:33 12:33 WBC 5.0 RBC 4.67 L Hgb 15.5 Hct 44.7 MCV 95.7 H MCH 33.2 H MCHC 34.7 RDW 11.4 L Plt Count 134 MPV 10.7 Neut # (Auto) 3.0 Lymph # (Auto) 1.4 L Cole # (Auto) 0.5 Eos # (Auto) 0.1 Baso # (Auto) 0.0 Absolute Nucleated RBC 0.00 Nucleated RBC % 0.0 Sodium 132 L Potassium 4.4 Chloride 99 L Carbon Dioxide 26 Anion Gap 7.0 BUN 12 Creatinine 0.8 Estimated GFR (MDRD) 102 Glucose 299 H Calcium 9.1 Total Bilirubin 0.8 AST 39 ALT 69 H Alkaline Phosphatase 84 Troponin I High Sens 3.3 Total Protein 7.1 Albumin 4.2 Globulin 2.9 Albumin/Globulin Ratio 1.4 Lipase 27 PD Medical Decision Making - ED course ED course: 51-year-old gentleman with 3 days of constant chest pain, it is not reminiscent of prior anginal equivalent and given not clearly ischemic EKG and negative troponin, this should be predictive. That said he is given close return precautions and is advised to follow-up closely with his manager mission. Departure - Departure Disposition: 01 Home, Self Care Clinical Impression: Chest pain Qualifiers: Chest pain type: unspecified Qualified Code(s): R07.9 - Chest pain, unspecified Condition: Good Record reviewed to determine appropriate education?: Yes Instructions: ED Chest Pain NonCardiac Comments: Your EKG and troponin levels, also your chest x-ray do not show any problematic findings. That said continue current medications and follow-up with your manager mission, next available appointment. Return for new or worsening symptoms.
[2022-03-13 12:42] LABS: BASOPHILS % (AUTO) 0.8 %; EOSINOPHILS # (AUTO) 0.1 10^3/uL (0.0-0.7); EOSINOPHILS % (AUTO) 1.8 %; HCT - HEMATOCRIT 44.7 % (42.0-52.0); HGB - HEMOGLOBIN 15.5 g/dL (14.0-18.0); LYMPHOCYTES # (AUTO) 1.4 10^3/uL (1.5-3.5); LYMPHOCYTES % (AUTO) 28.1 %; MEAN CORPUSCULAR HEMOGLOBIN 33.2 pg (27.0-31.0); MEAN CORPUSCULAR HGB CONC 34.7 g/dL (32.0-36.0); MEAN CORPUSCULAR VOLUME 95.7 fL (80.0-94.0); MEAN PLATELET VOLUME 10.7 fL (7.4-11.4); MONOCYTES # (AUTO) 0.5 10^3/uL (0.0-1.0); MONOCYTES % (AUTO) 9.4 %; NEUTROPHILS % (AUTO) 59.7 %; PLT - PLATELET COUNT 134 10^3/uL (130-450); RED BLOOD COUNT 4.67 10^6/uL (4.70-6.10); RED CELL DISTRIBUTION WIDTH 11.4 % (12.0-15.0)
[2022-03-13 12:54] LABS: ALBUMIN 4.2 g/dL (3.2-5.5); ALBUMIN/GLOBULIN RATIO 1.4 (1.0-2.2); BILIRUBIN,TOTAL 0.8 mg/dL (0.2-1.0); CALCIUM 9.1 mg/dL (8.5-10.3); CREATININE 0.8 mg/dL (0.6-1.2); POTASSIUM 4.4 mmol/L (3.5-5.0); TOTAL PROTEIN 7.1 g/dL (6.7-8.2)
--- NOTE | 2022-03-13 12:54 | XRAY Report ---
PROCEDURE: Chest 1 View X-Ray INDICATIONS: Chest pain TECHNIQUE: One view of the chest was acquired. COMPARISON: 03/06/2021. FINDINGS: Surgical changes and devices: Remote ORIF, right clavicle. Lungs and pleura: No pleural effusions or pneumothorax. Lungs are clear. Mediastinum: Mediastinal contours appear normal. Heart size is normal. Bones and chest wall: No suspicious bony lesions. Chronic deformity of right ribs secondary to remot e trauma. Overlying soft tissues appear unremarkable. IMPRESSION: No evidence acute pulmonary process. Reviewed by: Andres Ernst MD on 03/13/2022 12:53 PM PST Approved by: Andres Ernst MD on 03/13/2022 12:53 PM PST Station ID: [id number]
[2022-03-13 13:44] VITALS: BP 120/73
== END 2022-03-13 13:46 | disposition home or self-care (01) ==
LOC: ED 12:00
DX: R07.9 Chest pain, unspecified (principal); Z87.891 Personal history of nicotine dependence
CPT/HCPCS: 36415; 80053; 83690; 84484; 85025; 93005; 99284

== ENCOUNTER 2023-04-21 08:48 | Outpatient (CLI) | payer MEDICAID ==
[2023-04-21 09:03] LABS: BASOPHILS % (AUTO) 0.6 %; EOSINOPHILS # (AUTO) 0.1 10^3/uL (0.0-0.7); EOSINOPHILS % (AUTO) 1.6 %; HCT - HEMATOCRIT 46.8 % (42.0-52.0); HGB - HEMOGLOBIN 15.4 g/dL (14.0-18.0); LYMPHOCYTES # (AUTO) 2.2 10^3/uL (1.5-3.5); MEAN CORPUSCULAR HEMOGLOBIN 33.3 pg (27.0-31.0); MEAN CORPUSCULAR HGB CONC 32.9 g/dL (32.0-36.0); MEAN CORPUSCULAR VOLUME 101.3 fL (80.0-94.0); MEAN PLATELET VOLUME 10.9 fL (7.4-11.4); MONOCYTES # (AUTO) 0.4 10^3/uL (0.0-1.0); MONOCYTES % (AUTO) 6.2 %; NEUTROPHILS # (AUTO) 4.2 10^3/uL (1.5-6.6); NEUTROPHILS % (AUTO) 60.5 %; PLT - PLATELET COUNT 131 10^3/uL (130-450); RED BLOOD COUNT 4.62 10^6/uL (4.70-6.10); RED CELL DISTRIBUTION WIDTH 11.9 % (12.0-15.0)
[2023-04-21 09:18] LABS: BUN - BLOOD UREA NITROGEN 14 mg/dL (6-20); CALCIUM 9.8 mg/dL (8.5-10.3); CARBON DIOXIDE - CO2 29 mmol/L (21-32); CHLORIDE 106 mmol/L (101-111); CHOL/HDL RATIO 2.5 (<5.0); CHOLESTEROL 99 mg/dL; CREATININE 0.8 mg/dL (0.6-1.3); GFR - MDRD 102 (>89); GLUCOSE 196 mg/dL (74-104); HDL CHOLESTEROL 39 mg/dL; LDL CHOLESTEROL,CALCULATED 26 mg/dL; LDL/HDL RATIO 0.7 (<3.6); POTASSIUM 5.2 mmol/L (3.5-4.5); SODIUM 139 mmol/L (135-145); TRIGLYCERIDES 169 mg/dL (48-352); VLDL CHOLESTEROL 34 mg/dL
== END 2023-04-21 08:49 | disposition home or self-care (01) ==
LOC: LAB 08:48
PROVIDERS: ATTEND Internal Medicine Cardiovascular Disease
DX: E78.5 Hyperlipidemia, unspecified (principal); I25.119 Atherosclerotic heart disease of native coronary artery with unspecified angina pectoris
CPT/HCPCS: 36415; 80048; 80061; 83721; 85025

== ENCOUNTER 2023-08-22 13:17 | Outpatient (CLI) | payer MEDICAID ==
--- NOTE | 2023-08-23 16:08 | XRAY Report ---
PROCEDURE: Hand 3+V LT INDICATIONS: CRUSHING INJURY OF LEFT MIDDLE FINGER TECHNIQUE: 3 views of the hand(s) acquired. COMPARISON: None. FINDINGS: Bones: No fractures or dislocations. Normal alignment. Joint spaces are maintained. No suspicious [place] lesions. Soft tissues: No suspicious soft tissue calcifications or masses. No radiopaque foreign body. IMPRESSION: No acute bony abnormality. If pain persists with conservative management, consider repeat radiographs in 10-14 days or cross-sectional imaging. Reviewed by: Mauricio Bowman MD on 08/23/2023 4:07 PM PDT Approved by: Mauricio Bowman MD on 08/23/2023 4:07 PM PDT Station ID: [id number]
== END 2023-08-22 13:18 | disposition home or self-care (01) ==
LOC: DI 13:17
PROVIDERS: ATTEND Physician Assistant
DX: S67.193A Crushing injury of left middle finger, initial encounter (principal)